=== PATIENT | male | born 1995 | race American Indian/Alaskan Native ===

== ENCOUNTER 2018-08-03 21:32 | Emergency (ER) | payer SELFPAY ==
--- NOTE | 2018-08-03 23:05 | XRay Report ---
FINAL REPORT EXAM: XR FOREARM RT HISTORY: right arm pain s/p fall TECHNIQUE: PRIORS: None. FINDINGS: No fracture is identified. The joint spaces are within normal limits. No focal bony lesion identified . No radiopaque foreign body seen. IMPRESSION: Negative no acute abnormality.
--- NOTE | 2018-08-04 01:35 | Emergency Department Report ---
ED Upper Extremity Inj HPI - General Chief Complaint: Extremity Injury, Upper Stated Complaint: RIGHT ARM PAIN Time Seen by Provider: 08/04/18 01:25 Source: patient Mode of arrival: Ambulatory Limitations: No Limitations - History of Present Illness Initial Comments: 22-year-old -[place] male presents to the emergency room complaining of right forearm pain status post fall while skateboarding one week ago. Patient states it is painful when lifting heavy objects. Patient does not have a primary care provider. His pain at this moment is 0 out of 10. He last took ibuprofen 4 hours ago. He reports he is taking 400 mg ibuprofen. Patient has no past medical history currently takes no medications on a daily basis and has no known drug allergies. MD Complaint: Injury to:: right, forearm - Related Data Previous Rx's Medication Instructions Recorded Last Taken Type Ibuprofen [Motrin 800 MG tab] 800 mg PO Q8HR PRN #15 tablet 08/04/18 Unknown Rx Allergies Allergy/AdvReac Type Severity Reaction Status Date / Time No Known Allergies Allergy Unverified 08/03/18 21:40 ED Review of Systems ROS: Stated complaint: RIGHT ARM PAIN Other details as noted in HPI ED Past Medical Hx - Past Medical History Previous Medical History?: No - Surgical History Past Surgical History?: No - Social History Smoking Status: Never Smoker Substance Use Type: Alcohol - Medications Home Medications: Home Medications Medication Instructions Recorded Confirmed Last Taken Type Ibuprofen [Motrin 800 MG tab] 800 mg PO Q8HR PRN #15 tablet 08/04/18 Unknown Rx ED Physical Exam - General Limitations: No Limitations General appearance: obese - Head Head exam: Present: atraumatic, normocephalic - Eye Eye exam: Present: EOMI - ENT ENT exam: Present: mucous membranes moist - Expanded Upper Extremity Exam Right Shoulder Exam: Present: normal inspection, full ROM Upper Arm exam: Present: normal inspection, full ROM Elbow exam: Present: normal inspection, full ROM. Absent: tenderness Forearm Wrist exam: Present: normal inspection, full ROM, tenderness. Absent: swelling, abrasion, laceration, ecchymosis, deformity, erythema, tenderness over anatomical snuff box Hand Wrist exam: Present: normal inspection, full ROM. Absent: tenderness, swelling Neuro motor exam: Present: thumb adduction intact, fingers 2-5 abduction intact ED Course Vital Signs 08/03/18 21:40 Temperature 97.4 F L Pulse Rate 84 Respiratory 18 Rate Blood Pressure 135/94 O2 Sat by Pulse 98 Oximetry ED Medical Decision Making - Radiology Data Radiology results: report reviewed Right forearm status post fall pain impression of x-rays negative no acute abnormalities - Medical Decision Making Patient has been evaluated by this provider in fast track. X-ray of forearm is negative for any fractures. Critical care attestation.: If time is entered above; I have spent that time in minutes in the direct care of this critically ill patient, excluding procedure time. ED Disposition Clinical Impression: Strain of forearm, right Qualifiers: Encounter type: initial encounter Qualified Code(s): S56.911A - Strain of unsp ecified muscles, fascia and tendons at forearm level, right arm, initial encounter Disposition: TO HOME OR SELFCARE Is pt being admited?: No Does the pt Need Aspirin: No Condition: Stable Instructions: Arthralgia (ED) Additional Instructions: Please take pain medication as prescribed. Please increase her water intake if his symptoms persist please follow-up with the primary care provider. Prescriptions: Ibuprofen [Motrin 800 MG tab] 800 mg PO Q8HR PRN #15 tablet PRN Reason: Pain , Severe (7-10) Referrals: PRIMARY CARE, [Primary Care Provider] - 3-[address] [facility] [Provider Group] - 3-5 Days
[2018-08-04 01:53] VITALS: BP 128/87
== END 2018-08-04 01:52 | disposition home or self-care (01) ==
LOC: ED 21:32
DX: S56.911A Strain of unspecified muscles, fascia and tendons at forearm level, right arm, initial encounter (principal); X50.0XXA Overexertion from strenuous movement or load, initial encounter; Y93.89 Activity, other specified; Y92.89 Other specified places as the place of occurrence of the external cause; Y99.8 Other external cause status
CPT/HCPCS: 99283